=== PATIENT | male | born 1975 | race Caucasian/White ===

== ENCOUNTER → 2016-07-25 | Outpatient (REF) ==
--- NOTE | 2016-07-25 21:29 | REP ---
Clinical: Pain and disability . Technique: AP, lateral, and coned-down views. Findings: Alignment and lordosis is maintained. The vertebral bodies including transverse process and spinous processes are intact and normal. There is no evidence for acute fracture / compression injury or subluxation. No evidence for spondylolysis or spondylolisthesis. No significant degenerative change is noted. Impression: Normal lumbosacral spine radiograph series. Signed by Hever Olivas MD 07/25/2016 09:21 P
== END ==
LOC: M SMT 14:36
PROVIDERS: ATTEND Internal Medicine
DX: Z02.71 Encounter for disability determination (principal); M54.5 Low back pain